=== PATIENT | female | born 1965 | race Caucasian/White ===

== ENCOUNTER 2020-09-04 19:28 | Emergency (ER) | payer OTHER ==
[~2020-09-04 19:28] MED LIST: ANTIVERT25 MG PO; ASPIRIN EC81 M1 PO; ETODOLAC200 MG PO; FENOFIBRATE160 MG PO; HCTZ25 MG PO; KEFLEX250 MG PO; MYRBETRIQ50 MG PO; NAPROXEN500 MG PO; NIACIN ER500 MG PO; OMEPRAZOLE40 MG PO; POTASSIUM CHLO10 MEQ PO; PRAVASTATIN SOD20 MG PO
[2020-09-04 22:25] LABS: BASOPHIL 0.7 % (0-2); EOSINOPHIL 0.7 % (0-5); HCT 44.7 % (37.0-47.0); HGB 15.1 g/dl (12.5-16.0); LYMPHOCYTE 43.8 % (15-48); MCH 30.3 pg (25.0-31.0); MCHC 33.8 g/dL (32.0-36.0); MCV 89.8 fL (78.0-100.0); MONOCYTE 7.3 % (0-12); MPV 10.3 fL (6.0-9.5); NEUTROPHIL 47.2 % (41-80); NRBC 0; PLT 247 K/uL (150-400); RBC 4.98 M/uL (4.20-5.40); RDW 12.9 % (11.5-14.0); WBC 9.2 K/uL (4.0-10.5)
[2020-09-04 22:42] LABS: ALBUMIN 3.6 g/dL (3.4-5.0); BILIRUBIN - TOTAL 0.4 mg/dL (0.2-1.0); BUN/CREAT RATIO (CALC) 15.4 RATIO; CREATININE 0.91 mg/dL (0.51-0.95); GLOBULIN (CALCULATION) 3.6 g/dL; POTASSIUM 3.1 mmol/L (3.5-5.1); TOTAL PROTEIN 7.2 g/dL (6.4-8.2)
== END 2020-09-05 00:37 | disposition home or self-care (01) ==
LOC: FER 19:28
PROVIDERS: Emergency Medicine
DX: G43.909 Migraine, unspecified, not intractable, without status migrainosus (principal); I10 Essential (primary) hypertension; Z88.8 Allergy status to other drugs, medicaments and biological substances; Z88.1 Allergy status to other antibiotic agents; Z91.018 Allergy to other foods; Z91.048 Other nonmedicinal substance allergy status; Z79.82 Long term (current) use of aspirin; Z79.899 Other long term (current) drug therapy
CPT/HCPCS: 36415; 70450; 80053; 85025; J0780; J1170; J1200; J7030

== ENCOUNTER 2021-03-10 16:18 | Emergency (ER) | payer OTHER ==
[2021-03-10 18:02] LABS: BASOPHIL 0.6 % (0-2); EOSINOPHIL 0.7 % (0-5); HCT 48.7 % (37.0-47.0); HGB 15.5 g/dl (12.5-16.0); LYMPHOCYTE 43.1 % (15-48); MCH 30.2 pg (25.0-31.0); MCHC 31.8 g/dL (32.0-36.0); MCV 94.9 fL (78.0-100.0); MONOCYTE 5.7 % (0-12); MPV 11.1 fL (6.0-9.5); NRBC 0; PLT 342 K/uL (150-400); RBC 5.13 M/uL (4.20-5.40); RDW 13.3 % (11.5-14.0); WBC 15.4 K/uL (4.0-10.5)
[2021-03-10 18:04] LABS: BILIRUBIN NEGATIVE (NEGATIVE); BLOOD 2+ Ery/uL (NEGATIVE); CLARITY CLEAR (CLEAR); COLOR YELLOW (YELLOW); GLUCOSE (U) NORMAL (NORMAL); LEUKOCYTES NEGATIVE Leu/uL (NEGATIVE); NITRITE NEGATIVE (NEGATIVE); PROTEIN 2+ mg/dL (NEGATIVE); SPECIFIC GRAVITY >=1.030 (1.001-1.030); UROBILINOGEN 0.2 mg/dL (0.2-1.0); pH 6.5 (5.0-9.0)
[2021-03-10 18:07] LABS: NEUTROPHIL 49.4 % (41-80)
[2021-03-10 18:11] LABS: AMORPHOUS URATES CRYSTALS TRACE; BACTERIA 1+; GRANULAR CASTS TRACE
[2021-03-10 18:19] LABS: ECSTASY (MDMA) NEGATIVE (NEGATIVE); MARIJUANA (THC) NEGATIVE (NEGATIVE); METHADONE NEGATIVE (NEGATIVE); OPIATES NEGATIVE (NEGATIVE)
[2021-03-10 18:20] LABS: AMPHETAMINES NEGATIVE (NEGATIVE); BARBITURATES NEGATIVE (NEGATIVE); OXYCODONE NEGATIVE (NEGATIVE)
[2021-03-10 19:22] LABS: CORONAVIRUS 2019 SARS-COV-2 NEGATIVE (NEGATIVE); INFLUENZA A NAA NEGATIVE (NEGATIVE)
[2021-03-10 19:59] LABS: ALBUMIN 3.5 g/dL (3.4-5.0); BILIRUBIN - TOTAL 0.5 mg/dL (0.2-1.0); BUN/CREAT RATIO (CALC) 7.3 RATIO; CREATININE 0.82 mg/dL (0.51-0.95); GLOBULIN (CALCULATION) 3.4 g/dL; POTASSIUM 3.3 mmol/L (3.5-5.1); TOTAL PROTEIN 6.9 g/dL (6.4-8.2)
[2021-03-10 20:02] LABS: LACTIC ACID 10.8 mmol/L (0.4-1.9)
[2021-03-11 07:45] LABS: CLARITY (FLUID) CLEAR; COLOR (FLUID) COLORLESS; WBC (FLUID) 1 WBC/uL
[2021-03-11 07:46] LABS: RBC (FLUID) 18 RBC/uL
[2021-03-11 10:51] LABS: BILIRUBIN NEGATIVE (NEGATIVE); BLOOD 1+ Ery/uL (NEGATIVE); CLARITY CLEAR (CLEAR); COLOR YELLOW (YELLOW); GLUCOSE (U) NORMAL (NORMAL); LEUKOCYTES NEGATIVE Leu/uL (NEGATIVE); NITRITE NEGATIVE (NEGATIVE); PROTEIN NEGATIVE (NEGATIVE); SPECIFIC GRAVITY 1.025 (1.001-1.030); UROBILINOGEN 0.2 mg/dL (0.2-1.0)
[2021-03-11 11:14] LABS: BACTERIA TRACE; URINARY RBC RARE
[2021-03-11] MEDS ORDERED: KEPPRA750 MG PO (11:57)
== END 2021-03-11 12:31 | disposition home or self-care (01) ==
LOC: FER 16:18
PROVIDERS: Emergency Medicine; Emergency Medicine Emergency Medical Services; Internal Medicine
DX: R56.9 Unspecified convulsions (principal); G43.809 Other migraine, not intractable, without status migrainosus; I10 Essential (primary) hypertension; Z20.822 Contact with and (suspected) exposure to COVID-19; Z88.1 Allergy status to other antibiotic agents; Z88.8 Allergy status to other drugs, medicaments and biological substances; Z91.041 Radiographic dye allergy status
CPT/HCPCS: 36415; 70450; 71045; 71250; 80053; 80305; 81001; 82945; 83605; 83880; 84145; 84155; 84484; 85025; 87040; 87070; 87205; 87529; 89051; 93005; 96365; 96367; 96375; J0696; J1953; J2060; J2543; J7030; U0002

== ENCOUNTER 2021-03-13 12:52 | Inpatient (IN) | payer OTHER ==
[~2021-03-13] VITALS: Ht 162.6 cm; Wt 127.7 kg
[~2021-03-13 12:52] MED LIST changes: +KEPPRA750 MG PO
[2021-03-13 14:19] LABS: CORONAVIRUS 2019 SARS-COV-2 NEGATIVE (NEGATIVE); INFLUENZA A NAA NEGATIVE (NEGATIVE)
[2021-03-13 16:00] LABS: BASOPHIL 0.5 % (0-2); EOSINOPHIL 0.1 % (0-5); HGB 14.9 g/dl (12.5-16.0); LYMPHOCYTE 37.8 % (15-48); MCH 30.2 pg (25.0-31.0); MCHC 32.4 g/dL (32.0-36.0); MCV 93.1 fL (78.0-100.0); MONOCYTE 6.4 % (0-12); NEUTROPHIL 54.9 % (41-80); NRBC 0; PLT 260 K/uL (150-400); RBC 4.94 M/uL (4.20-5.40); RDW 13.5 % (11.5-14.0); WBC 12.7 K/uL (4.0-10.5)
[2021-03-13 17:05] LABS: BUN/CREAT RATIO (CALC) 12.8 RATIO; CREATININE 0.86 mg/dL (0.51-0.95); POTASSIUM 3.3 mmol/L (3.5-5.1)
[2021-03-14 10:01] LABS: BASOPHIL 0.7 % (0-2); EOSINOPHIL 1.4 % (0-5); HCT 43.1 % (37.0-47.0); HGB 14.3 g/dl (12.5-16.0); LYMPHOCYTE 46.3 % (15-48); MCH 31.1 pg (25.0-31.0); MCHC 33.2 g/dL (32.0-36.0); MCV 93.7 fL (78.0-100.0); MONOCYTE 5.9 % (0-12); MPV 11.2 fL (6.0-9.5); NEUTROPHIL 45.4 % (41-80); NRBC 0; PLT 184 K/uL (150-400); RDW 13.7 % (11.5-14.0); WBC 8.8 K/uL (4.0-10.5)
[2021-03-14 10:18] LABS: BUN/CREAT RATIO (CALC) 16.5 RATIO; CREATININE 0.79 mg/dL (0.51-0.95); POTASSIUM 3.3 mmol/L (3.5-5.1)
[2021-03-15 06:30] LABS: BASOPHIL 0.6 % (0-2); EOSINOPHIL 1.1 % (0-5); HCT 41.6 % (37.0-47.0); LYMPHOCYTE 37.9 % (15-48); MCH 31.1 pg (25.0-31.0); MCHC 33.7 g/dL (32.0-36.0); MCV 92.4 fL (78.0-100.0); MONOCYTE 7.4 % (0-12); MPV 11.4 fL (6.0-9.5); NEUTROPHIL 52.5 % (41-80); NRBC 0; PLT 205 K/uL (150-400); RDW 13.4 % (11.5-14.0); WBC 8.3 K/uL (4.0-10.5)
[2021-03-15 07:07] LABS: CREATININE 0.79 mg/dL (0.51-0.95); POTASSIUM 3.4 mmol/L (3.5-5.1)
[2021-03-15] MEDS ORDERED: ALDACTONE25 MG PO (17:09)
[2021-03-15] MEDS ORDERED: ZOLOFT50 MG PO (17:09)
[2021-03-15] MEDS ORDERED: MUCINEX 600MG600 MG PO (17:10)
[2021-03-15] MEDS ORDERED: B12 ACTIVE1000 MCG PO (17:10)
[2021-03-15] MEDS ORDERED: COLESTID 1GM TAB1 GM PO (17:10)
[2021-03-16 05:56] LABS: BASOPHIL 0.7 % (0-2); EOSINOPHIL 1.6 % (0-5); HCT 40.2 % (37.0-47.0); HGB 13.4 g/dl (12.5-16.0); LYMPHOCYTE 45.7 % (15-48); MCH 30.6 pg (25.0-31.0); MCHC 33.3 g/dL (32.0-36.0); MCV 91.8 fL (78.0-100.0); MONOCYTE 6.7 % (0-12); MPV 11.7 fL (6.0-9.5); NEUTROPHIL 44.2 % (41-80); NRBC 0; PLT 218 K/uL (150-400); RBC 4.38 M/uL (4.20-5.40); RDW 13.5 % (11.5-14.0); WBC 12.3 K/uL (4.0-10.5)
[2021-03-16 06:20] LABS: BUN/CREAT RATIO (CALC) 12.8 RATIO; CREATININE 0.86 mg/dL (0.51-0.95)
[2021-03-17 05:45] LABS: BASOPHIL 0.5 % (0-2); EOSINOPHIL 1.8 % (0-5); HCT 43.7 % (37.0-47.0); HGB 14.8 g/dl (12.5-16.0); MCHC 33.9 g/dL (32.0-36.0); MCV 91.6 fL (78.0-100.0); MONOCYTE 7.9 % (0-12); MPV 11.6 fL (6.0-9.5); NEUTROPHIL 45.3 % (41-80); NRBC 0; PLT 226 K/uL (150-400); RBC 4.77 M/uL (4.20-5.40); RDW 13.6 % (11.5-14.0); WBC 11.7 K/uL (4.0-10.5)
[2021-03-17 05:54] LABS: LYMPHOCYTE 43.2 % (15-48)
[2021-03-17 06:10] LABS: BUN/CREAT RATIO (CALC) 20.7 RATIO; CREATININE 0.92 mg/dL (0.51-0.95); POTASSIUM 3.8 mmol/L (3.5-5.1)
== END 2021-03-17 10:15 | disposition other institution (70) | DRG 280 ==
LOC: FER 12:52 → FTCU 16:23 → FER 16:23 → FTCU 03-14 18:35
PROVIDERS: Internal Medicine; Nurse Practitioner Family; ADMIT Family Medicine
DX: I21.4 Non-ST elevation (NSTEMI) myocardial infarction (principal); I50.23 Acute on chronic systolic (congestive) heart failure; N17.9 Acute kidney failure, unspecified; I13.0 Hypertensive heart and chronic kidney disease with heart failure and stage 1 through stage 4 chronic kidney disease, or unspecified chronic kidney disease; E87.6 Hypokalemia; Z20.822 Contact with and (suspected) exposure to COVID-19; N18.2 Chronic kidney disease, stage 2 (mild); G40.909 Epilepsy, unspecified, not intractable, without status epilepticus; E78.5 Hyperlipidemia, unspecified; K21.9 Gastro-esophageal reflux disease without esophagitis; G47.33 Obstructive sleep apnea (adult) (pediatric); G25.81 Restless legs syndrome; R94.31 Abnormal electrocardiogram [ECG] [EKG]; Z90.49 Acquired absence of other specified parts of digestive tract; Z98.84 Bariatric surgery status; Z86.16 Personal history of COVID-19; Z88.1 Allergy status to other antibiotic agents; Z91.041 Radiographic dye allergy status; Z79.899 Other long term (current) drug therapy
CPT/HCPCS: 36415; 36600; 71045; 71275; 80048; 80061; 82803; 83036; 83880; 84443; 84484; 85025; 85379; 85730; 93005; 96372; J1644; J1940; J2270; J2765; J3030; J7030; J7060; U0002

== ENCOUNTER 2021-04-03 12:52 | Emergency (ER) | payer OTHER ==
[~2021-04-03 12:52] MED LIST changes: +ALDACTONE25 MG PO; +B12 ACTIVE1000 MCG PO; +COLESTID 1GM TAB1 GM PO; +MUCINEX 600MG600 MG PO; +ZOLOFT50 MG PO
[2021-04-03 13:48] LABS: BASOPHIL 0.5 % (0-2); EOSINOPHIL 0.5 % (0-5); HCT 45.7 % (37.0-47.0); HGB 15.6 g/dl (12.5-16.0); LYMPHOCYTE 40.9 % (15-48); MCH 30.7 pg (25.0-31.0); MCHC 34.1 g/dL (32.0-36.0); MONOCYTE 6.6 % (0-12); MPV 11.8 fL (6.0-9.5); NEUTROPHIL 51.1 % (41-80); NRBC 0; PLT 284 K/uL (150-400); RBC 5.08 M/uL (4.20-5.40); RDW 13.4 % (11.5-14.0); WBC 7.4 K/uL (4.0-10.5)
[2021-04-03 14:30] LABS: BILIRUBIN 2+ mg/dL (NEGATIVE); BLOOD TRACE-INTACT Ery/uL (NEGATIVE); COLOR YELLOW (YELLOW); GLUCOSE (U) NORMAL (NORMAL); LEUKOCYTES TRACE Leu/uL (NEGATIVE); NITRITE NEGATIVE (NEGATIVE); PROTEIN TRACE (LOW) mg/dL (NEGATIVE)
[2021-04-03 14:34] LABS: CLARITY HAZY (CLEAR)
[2021-04-03 14:40] LABS: BACTERIA 2+
[2021-04-03 14:42] LABS: MUCOUS MODERATE
[2021-04-03 14:43] LABS: SQUAMOUS EPITHELIAL CELLS >50
[2021-04-03 14:59] LABS: ALBUMIN 3.8 g/dL (3.4-5.0); BILIRUBIN - TOTAL 0.7 mg/dL (0.2-1.0); BUN/CREAT RATIO (CALC) 17.4 RATIO; CREATININE 0.92 mg/dL (0.51-0.95); GLOBULIN (CALCULATION) 2.9 g/dL; POTASSIUM 3.2 mmol/L (3.5-5.1); TOTAL PROTEIN 6.7 g/dL (6.4-8.2)
[2021-04-03] MEDS ORDERED: ANTIVERT25 MG PO (17:16)
== END 2021-04-03 17:42 | disposition home or self-care (01) ==
LOC: FER 12:52
PROVIDERS: Emergency Medicine
DX: R42 Dizziness and giddiness (principal); R07.89 Other chest pain; I25.10 Atherosclerotic heart disease of native coronary artery without angina pectoris; I10 Essential (primary) hypertension; Z88.1 Allergy status to other antibiotic agents; Z88.8 Allergy status to other drugs, medicaments and biological substances; Z91.041 Radiographic dye allergy status
CPT/HCPCS: 36415; 70450; 71045; 80053; 81001; 84484; 85025; 93005; J7030

== ENCOUNTER 2021-07-14 15:07 | Emergency (ER) | payer OTHER ==
[2021-07-14 17:24] LABS: BASOPHIL 0.5 % (0-2); EOSINOPHIL 0.3 % (0-5); HCT 40.5 % (37.0-47.0); HGB 13.8 g/dl (12.5-16.0); LYMPHOCYTE 40.1 % (15-48); MCH 30.3 pg (25.0-31.0); MCHC 34.1 g/dL (32.0-36.0); MONOCYTE 6.7 % (0-12); MPV 11.5 fL (6.0-9.5); NRBC 0; PLT 250 K/uL (150-400); RBC 4.55 M/uL (4.20-5.40); RDW 12.8 % (11.5-14.0); WBC 7.8 K/uL (4.0-10.5)
[2021-07-14 17:28] LABS: INR 1.29 (0.9-1.2); PROTHROMBIN TIME 15.4 SECONDS (11.8-13.4)
[2021-07-14 17:29] LABS: PTT 34.4 SECONDS (24.4-34.7)
[2021-07-14 17:41] LABS: ALBUMIN 3.6 g/dL (3.4-5.0); BILIRUBIN - TOTAL 0.7 mg/dL (0.2-1.0); BUN/CREAT RATIO (CALC) 19.1 RATIO; CREATININE 0.94 mg/dL (0.51-0.95); GLOBULIN (CALCULATION) 3.1 g/dL; POTASSIUM 2.8 mmol/L (3.5-5.1); TOTAL PROTEIN 6.7 g/dL (6.4-8.2)
== END 2021-07-14 20:50 | disposition home or self-care (01) ==
LOC: FER 15:07
PROVIDERS: Emergency Medicine
DX: R55 Syncope and collapse (principal); E87.6 Hypokalemia; I10 Essential (primary) hypertension; Z28.310 Unvaccinated for COVID-19; Z88.1 Allergy status to other antibiotic agents; Z88.8 Allergy status to other drugs, medicaments and biological substances; Z91.041 Radiographic dye allergy status
CPT/HCPCS: 36415; 70450; 71045; 80053; 83880; 84484; 85025; 85610; 85730; 93005; G0480

== ENCOUNTER 2021-09-17 08:33 | Emergency (ER) | payer OTHER ==
[2021-09-17 09:12] LABS: BASOPHIL 0.6 % (0-2); EOSINOPHIL 0.7 % (0-5); HCT 43.4 % (37.0-47.0); LYMPHOCYTE 47.6 % (15-48); MCH 29.8 pg (25.0-31.0); MCHC 32.3 g/dL (32.0-36.0); MCV 92.3 fL (78.0-100.0); MONOCYTE 6.1 % (0-12); MPV 10.8 fL (6.0-9.5); NEUTROPHIL 44.7 % (41-80); NRBC 0; PLT 234 K/uL (150-400); WBC 7.3 K/uL (4.0-10.5)
[2021-09-17 09:18] LABS: INR 1.48 (0.9-1.2); PROTHROMBIN TIME 17.4 SECONDS (11.9-13.9); PTT 37.9 SECONDS (24.9-34.6)
[2021-09-17 09:24] LABS: ALBUMIN 3.3 g/dL (3.4-5.0); BILIRUBIN - TOTAL 0.4 mg/dL (0.2-1.0); BUN/CREAT RATIO (CALC) 12.2 RATIO; CREATININE 0.9 mg/dL (0.51-0.95); GLOBULIN (CALCULATION) 3.2 g/dL; TOTAL PROTEIN 6.5 g/dL (6.4-8.2)
[2021-09-17] MEDS ORDERED: MEDROL 4MG DOSEP4 MG PO (10:13)
== END 2021-09-17 10:22 | disposition home or self-care (01) ==
LOC: FER 08:33
PROVIDERS: Emergency Medicine
DX: M94.0 Chondrocostal junction syndrome [Tietze] (principal); I10 Essential (primary) hypertension; Z88.8 Allergy status to other drugs, medicaments and biological substances; Z88.1 Allergy status to other antibiotic agents; Z91.041 Radiographic dye allergy status; Z91.018 Allergy to other foods; Z79.01 Long term (current) use of anticoagulants; Z79.899 Other long term (current) drug therapy; Z20.822 Contact with and (suspected) exposure to COVID-19; Z28.310 Unvaccinated for COVID-19
CPT/HCPCS: 36415; 71046; 80053; 82553; 84484; 85025; 85610; 85730; 93005; U0002

== ENCOUNTER 2021-09-26 21:35 | Emergency (ER) | payer OTHER ==
[~2021-09-26 21:35] MED LIST changes: +MEDROL 4MG DOSEP4 MG PO
[2021-09-26 22:41] LABS: BASOPHIL 0.4 % (0-2); EOSINOPHIL 0.5 % (0-5); HCT 40.9 % (37.0-47.0); HGB 13.4 g/dl (12.5-16.0); LYMPHOCYTE 52.5 % (15-48); MCH 30.4 pg (25.0-31.0); MCHC 32.8 g/dL (32.0-36.0); MCV 92.7 fL (78.0-100.0); MONOCYTE 6.8 % (0-12); MPV 11.2 fL (6.0-9.5); NEUTROPHIL 39.4 % (41-80); NRBC 0; PLT 242 K/uL (150-400); RBC 4.41 M/uL (4.20-5.40); WBC 11.4 K/uL (4.0-10.5)
[2021-09-26 22:50] LABS: BILIRUBIN NEGATIVE (NEGATIVE); BLOOD TRACE-INTACT Ery/uL (NEGATIVE); CLARITY CLEAR (CLEAR); COLOR YELLOW (YELLOW); GLUCOSE (U) NORMAL (NORMAL); LEUKOCYTES NEGATIVE Leu/uL (NEGATIVE); NITRITE NEGATIVE (NEGATIVE); PROTEIN NEGATIVE (NEGATIVE); SPECIFIC GRAVITY >=1.030 (1.001-1.030); UROBILINOGEN 0.2 mg/dL (0.2-1.0)
[2021-09-26 22:58] LABS: BACTERIA TRACE
[2021-09-26 22:59] LABS: MUCOUS MODERATE
[2021-09-26 23:18] LABS: ALBUMIN 2.9 g/dL (3.4-5.0); BILIRUBIN - TOTAL 0.2 mg/dL (0.2-1.0); BUN/CREAT RATIO (CALC) 18.1 RATIO; CREATININE 1.05 mg/dL (0.51-0.95); GLOBULIN (CALCULATION) 2.7 g/dL; POTASSIUM 3.8 mmol/L (3.5-5.1); TOTAL PROTEIN 5.6 g/dL (6.4-8.2)
[2021-09-27] MEDS ORDERED: LOPRESSOR25 MG PO (00:13)
== END 2021-09-27 00:35 | disposition home or self-care (01) ==
LOC: FER 21:35
PROVIDERS: Emergency Medicine
DX: G43.909 Migraine, unspecified, not intractable, without status migrainosus (principal); R07.89 Other chest pain; I10 Essential (primary) hypertension; Z88.1 Allergy status to other antibiotic agents; Z91.018 Allergy to other foods; Z91.041 Radiographic dye allergy status; Z28.310 Unvaccinated for COVID-19
CPT/HCPCS: 36415; 80053; 81001; 84484; 85025; 93005; J0780; J1200; J1885; J7030

== ENCOUNTER 2021-11-09 14:10 | Emergency (ER) | payer OTHER ==
[~2021-11-09 14:10] MED LIST changes: +LOPRESSOR25 MG PO
[2021-11-09 15:38] LABS: INFLUENZA A NAA NEGATIVE (NEGATIVE)
[2021-11-09 15:43] LABS: CORONAVIRUS 2019 SARS-COV-2 POSITIVE (NEGATIVE)
[2021-11-09] MEDS ORDERED: PAXLOVID 150-11 EACH PO (16:42)
== END 2021-11-09 16:56 | disposition home or self-care (01) ==
LOC: FER 14:10
PROVIDERS: Nurse Practitioner Family
DX: U07.1 COVID-19 (principal); Z28.310 Unvaccinated for COVID-19
CPT/HCPCS: 99284; U0002